=== PATIENT | male | born 1970 | race Caucasian/White ===

== ENCOUNTER 2017-04-07 10:50 | Emergency (ER) | payer BC ==
[~2017-04-07] VITALS: Ht 175.2 cm; Wt 99.8 kg
[~2017-04-07 10:50] MED LIST: DARVOCET N 1001 TAB PO
[2017-04-07] MEDS ORDERED: PAXIL10 MG PO (10:55)
[2017-04-07] MEDS ORDERED: ZESTRIL10 MG PO (10:55)
[2017-04-07] MEDS ORDERED: TOPROL XL25 MG PO (10:55)
== END 2017-04-07 11:32 | disposition home or self-care (01) ==
LOC: ED 10:50
DX: T15.01XA Foreign body in cornea, right eye, initial encounter (principal); Z88.1 Allergy status to other antibiotic agents; Y93.89 Activity, other specified; Y92.89 Other specified places as the place of occurrence of the external cause; Y99.8 Other external cause status